=== PATIENT | female | born 1965 | race Caucasian/White ===

== ENCOUNTER → 2024-06-20 09:21 | Outpatient (BNVA) | payer MEDICAID, SELFPAY | DX: I10 Essential (primary) hypertension (principal); E03.9 Hypothyroidism, unspecified | CPT/HCPCS: 80053; 80061; 82306; 84439; 84443; 84481; 85025 ==

== ENCOUNTER 2024-06-26 13:15 | Outpatient (CLI) | payer MEDICAID, SELFPAY ==
--- NOTE | 2024-06-26 13:30 | MM_ITS ---
WS: [id number] BILATERAL SCREENING DIGITAL TOMOSYNTHESIS MAMMOGRAM WITH CAD HISTORY: screening COMPARISON: None available. Bilateral CC and MLO views with tomosynthesis and synthetic mammography submitted. Computer aided det ection analyzed. Breast composition: There are scattered areas of fibroglandular density. no suspicious masses, microc alcifications or architectural distortion. There are a few scattered lymph nodes and calcifications w ithin each breast. MM/[place] [id number] IMPRESSION: BI-RADS: 2 - Benign. FOLLOW UP: 1 Year Follow-up
== END 2024-06-26 13:16 | disposition home or self-care (01) ==
LOC: RAD 13:16
DX: Z12.31 Encounter for screening mammogram for malignant neoplasm of breast (principal); R92.323 Mammographic fibroglandular density, bilateral breasts; R92.1 Mammographic calcification found on diagnostic imaging of breast
CPT/HCPCS: 77063; 77067; 80053; 80061; 82306; 84439; 84443; 84481; 85025

== ENCOUNTER 2024-08-19 10:47 | Emergency (ER) | payer MEDICAID, SELFPAY ==
--- NOTE | 2024-08-19 10:56 | XR_ITS ---
WS: [id number] Exam: XR ankle RT min 3V* [id number] Date/Time of Exam: 08/19/2024 11:06 AM Reason For Exam: injury No acute fracture. Lateral soft tissue swelling. The ankle mortise is equidistant. XR/XR ankle RT min 3V* [id number] IMPRESSION: 1. Lateral soft tissue swelling-no fracture.
[2024-08-19 11:29] VITALS: BP 147/81; PULSE 67; RESP 18; TEMP 36.4; O2SAT 98; BMI 35.6
--- NOTE | 2024-08-19 12:01 | ED_ITS ---
HPI - Extremity Injury (Lower) General: Chief Complaint: Extremity Problem,Nontraumatic Stated Complaint: Right ankle sprain Time Seen by Provider: 08/19/24 11:56 Source: patient and family Mode of arrival: ambulatory Limitations: no limitations History of Present Illness: Patient is a 59-year-old female presents to ED today along with her daughter for evaluation of right ankle and right foot pain. Daughter feels like she may have stepped on a pecan shell/nut in her yard. She initially felt like it was her ankle that hurt but now it is more the bottom of her foot. No direct or known injury or trauma that patient herself remembers. She has not noticed any redness or warmth to the joint. She is ambulatory here without difficulty or assistance. MD complaint: ankle injury and foot injury Onset (ago): day(s) (yesterday) Injury: Right: ankle and foot Place: home Severity: mild Relieving factors: immobilization Exacerbating factors: weight bearing Associated symptoms: Reports no associated symptoms Other symptoms: none Related Data Home Medications Medication Instructions Recorded Confirmed B-complex with vitamin C 1 tab PO DAILY 06/20/24 06/20/24 cholecalciferol (vitamin D3) 10 10 mcg PO DAILY 06/20/24 06/20/24 mcg (400 unit) capsule sennosides 8.6 mg-docusate sodium 2 tab-cap PO DAILY 06/20/24 06/20/24 50 mg tablet (Stool Softener-Stimulant Laxative) Previous Rx's Medication Instructions Recorded clopidogrel 75 mg tablet 75 mg PO DAILY #30 tabs 06/20/24 empagliflozin 10 mg tablet 10 mg PO DAILY #30 tabs 06/20/24 (Jardiance) furosemide 20 mg tablet 20 mg PO DAILY #30 tabs 06/20/24 gabapentin 300 mg capsule 300 mg PO TID #90 caps 06/20/24 levothyroxine 75 mcg tablet 75 mcg PO DAILY #30 tabs 06/20/24 metoprolol tartrate 25 mg tablet 25 mg PO BID #60 tabs 06/20/24 potassium chloride 10 mEq 10 meq PO BID #60 tabs 06/20/24 tablet,extended release atorvastatin 40 mg tablet 40 mg PO DAILY #30 tabs 07/24/24 Allergies Allergy/AdvReac Type Severity Reaction Status Date / Time morphine Allergy ADR-Vomitin Verified 06/20/24 09:33 g potassium Allergy ADR-Vomitin Verified 06/20/24 09:33 g Review of Systems Const: Denies: fever(s) Card: Denies: chest pain Resp: Denies: dyspnea Musc: Reports: extremity pain (R foot) and joint pain (R ankle); Denies: joint swelling, joint redness or joint warmth Neuro: Denies: numbness in extremities, weakness in extremities, sensory changes or difficulty walking PFSH ED PFSH: Medical History Mixed hyperlipidemia CKD (chronic kidney disease) stage 3, GFR 30-59 ml/min Breast cancer screening Vitamin D deficiency Hypothyroidism Coronary artery disease [place] 2019 Kidney disease has had stone in past. Turned septic Stroke 2012 Hypertension Surgical History H/O: hysterectomy History of open heart surgery 2005. Triple bypass History of thyroidectomy 2007 Family History Mother Cancer Cervical Cancer Father Congenital heart disease Diabetes mellitus, type 2 Other History of open heart surgery Social History Smoking and tobacco/nicotine status: former use of tobacco/nicotine Alcohol intake: never Substance/Drug Use: never Adopted: No service: No Current occupational exposures/hazards: Yes Previous occupational history: Cleaning supplies Physical Exam Const: COMMON NORMALS: no acute distress, average body habitus, no limitatio ns, healthy appearing, alert and well nourished Extremity: COMMON NORMALS: full ROM and capillary refill normal GENERAL: Yes normal exam except as noted RIGHT LOWER EXTREMITY: Yes foot & digits (very mild ankle swelling; full ROM noted; no redness/warmth) Right ankle: Yes neurovascular exam (normal) and Yes foot & digits (TTP plantar/lateral foot; no edema/redness noted) Right foot and digits: Yes inspection (no plantar injuries/puncture wounds noted) and Yes neurovascular exam (normal) Neuro: COMMON NORMALS: moves all extremities, no focal motor deficits and no sensory deficits noted SENSORIUM/ORIENTATION: Yes alert Course Vital Signs: Vital signs: Vital Signs Temperature 97.6 F 08/19/24 11:29 Pulse Rate 67 08/19/24 11:29 Respiratory Rate 18 08/19/24 11:29 Blood Pressure 147/81 08/19/24 11:29 Pulse Oximetry 98 08/19/24 11:29 MDM - Extremity Injury (Lower) Medical Decision Making XR of the ankle ordered from triage is unremarkable. Suspicion for foot fracture is extremely low based on her history. Recommended conservative therapies and follow-up with primary care in 1 to 2 weeks. Lab Data Radiology Impressions Ankle X-Ray 08/19/24 10:56 IMPRESSION: 1. Lateral soft tissue swelling-no fracture. All radiology interpretation(s) finalized by discharge Discharge Plan Discharge Patient Disposition: Home Clinical Impression: Acute pain of right foot Condition: Stable Prescriptions: No Action sennosides-docusate sodium [Stool Softener-Stimulant Laxat] 8.6-50 mg tablet 2 tab-cap PO DAILY cholecalciferol (vitamin D3) 10 mcg (400 unit) capsule 10 mcg PO DAILY B-complex with vitamin C Tablet 1 tab PO DAILY clopidogrel 75 mg tablet 75 mg PO DAILY Qty: 30 2RF Jardiance 10 mg tablet 10 mg PO DAILY Qty: 30 2RF furosemide 20 mg tablet 20 mg PO DAILY Qty: 30 2RF levothyroxine 75 mcg tablet 75 mcg PO DAILY Qty: 30 2RF metoprolol tartrate 25 mg tablet 25 mg PO BID Qty: 60 2RF potassium chloride 10 mEq tablet extended release 10 meq PO BID Qty: 60 2RF gabapentin 300 mg capsule 300 mg PO TID Qty: 90 2RF atorvastatin 40 mg tablet 40 mg PO DAILY Qty: 30 0RF Discharge Orders: Discharge ED (Routine); Ordered 08/19/24 Ordered By: Mary Chau Referrals: Francheska Shahid NP [Primary Care Provider] - Activity Restrictions/Additional Instructions: As we discussed you may gently roll the bottom of the foot, apply ice and heat (alternate), may soak in Epsom salt, begin wearing a supportive shoe, BATOOL wrap, and follow-up with primary care in 1 to 2 weeks if symptoms do not begin to improve. Coding Level of Care Code ED Candle Making Supervisor for Danni Valdez
[2024-08-19 12:38] VITALS: BP 149/104; PULSE 77; O2SAT 96
[2024-08-19 12:45] VITALS: BP 149/104; PULSE 77; O2SAT 96
== END 2024-08-19 12:45 | disposition home or self-care (01) ==
PROVIDERS: Emergency Provider Physician Assistant
DX: M79.671 Pain in right foot (principal); M25.571 Pain in right ankle and joints of right foot
CPT/HCPCS: 73610; 99283

== ENCOUNTER → 2024-08-25 08:57 | Outpatient (BNVA) | payer MEDICAID, SELFPAY | PROVIDERS: Visit Provider Internal Medicine Cardiovascular Disease | DX: I25.10 Atherosclerotic heart disease of native coronary artery without angina pectoris (principal); Z87.891 Personal history of nicotine dependence; I12.9 Hypertensive chronic kidney disease with stage 1 through stage 4 chronic kidney disease, or unspecified chronic kidney disease; N18.30 Chronic kidney disease, stage 3 unspecified | CPT/HCPCS: 99213 ==

== ENCOUNTER → 2024-09-17 15:18 | Outpatient (BNVA) | payer MEDICAID, SELFPAY | PROVIDERS: Visit Provider Internal Medicine Cardiovascular Disease | DX: I25.10 Atherosclerotic heart disease of native coronary artery without angina pectoris (principal); E78.2 Mixed hyperlipidemia; I12.9 Hypertensive chronic kidney disease with stage 1 through stage 4 chronic kidney disease, or unspecified chronic kidney disease; N18.30 Chronic kidney disease, stage 3 unspecified; Z87.891 Personal history of nicotine dependence | CPT/HCPCS: 99204 ==

== ENCOUNTER 2024-11-28 09:17 | Outpatient (CLI) | payer MEDICAID, SELFPAY ==
--- NOTE | 2024-11-28 09:30 | US_ITS ---
WS: [id number] Complete ABDOMINAL ULTRASOUND HISTORY: STAGE 3 kIDNEY DISEASE COMPARISON: None available. Liver: 14.9 cm in length. Normal size liver and echogenicity. No bile duct dilatation or mass. Portal Vein: Normal hepatopetal flow with monophasic waveform. Gallbladder: Normally distended with cholelithiasis. No wall thickening or edema. CBD: 0.4 cm Pancreas: Normal size and echogenicity. Right kidney: 10.2 cm x 4.0 x 3.6 cm. Cortex:1.0 cm. Normal size and echogenicity. No hydronephrosis or mass. Left kidney: 7.6 cm x 3.8 cm x 4.1 cm. Cortex: 1.2 cm. Normal size kidney. Cortical cyst mid kidney 3.0 x 2.5 x 3.0 cm. No hydronephrosis. Spleen: 10.0 cm. Normal size and echogenicity. Aorta and IVC: Unremarkable abdominal aorta and IVC. US/US abdomen complete* [id number] Impression: 1. Normal sized kidneys. No cortical thinning. 2. Simple cyst LEFT kidney maximum diameter 3.0 cm. 3. Cholelithiasis without acute cholecystitis.
== END 2024-11-28 09:18 | disposition home or self-care (01) ==
LOC: RAD 09:24
PROVIDERS: Visit Provider Internal Medicine
DX: N18.31 Chronic kidney disease, stage 3a (principal); N28.1 Cyst of kidney, acquired; K80.20 Calculus of gallbladder without cholecystitis without obstruction
CPT/HCPCS: 76700

== ENCOUNTER → 2024-12-22 11:11 | Outpatient (BNVA) | payer MEDICAID, SELFPAY | DX: R05.9 Cough, unspecified (principal); N18.30 Chronic kidney disease, stage 3 unspecified; E03.9 Hypothyroidism, unspecified; E78.2 Mixed hyperlipidemia; I63.9 Cerebral infarction, unspecified; I25.10 Atherosclerotic heart disease of native coronary artery without angina pectoris; I10 Essential (primary) hypertension; Z23 Encounter for immunization | CPT/HCPCS: 71046; 80053; 80061; 81000; 82043; 82306; 82310; 83970; 84439; 84443; 85025 ==

== ENCOUNTER → 2025-03-24 13:54 | Outpatient (BNVA) | payer MEDICARE, MEDICAID, SELFPAY | PROVIDERS: Visit Provider Internal Medicine Cardiovascular Disease | DX: I12.9 Hypertensive chronic kidney disease with stage 1 through stage 4 chronic kidney disease, or unspecified chronic kidney disease (principal); N18.30 Chronic kidney disease, stage 3 unspecified; E78.5 Hyperlipidemia, unspecified; I25.10 Atherosclerotic heart disease of native coronary artery without angina pectoris; R60.0 Localized edema; Z79.01 Long term (current) use of anticoagulants; Z95.1 Presence of aortocoronary bypass graft | CPT/HCPCS: 99214 ==

== ENCOUNTER → 2025-03-25 14:16 | Outpatient (BNVA) | payer MEDICARE, MEDICAID, SELFPAY | PROVIDERS: Visit Provider Nurse Practitioner | DX: R39.9 Unspecified symptoms and signs involving the genitourinary system (principal) | CPT/HCPCS: 81000; 87086 ==

== ENCOUNTER → 2025-03-30 14:43 | Outpatient (BNVA) | payer MEDICARE, MEDICAID, SELFPAY | DX: I10 Essential (primary) hypertension (principal); E03.9 Hypothyroidism, unspecified | CPT/HCPCS: 80053; 84439; 84443 ==

== ENCOUNTER 2025-04-08 16:06 | Outpatient (CLI) | payer MEDICARE, MEDICAID, SELFPAY | END 2025-04-08 16:07 | disposition home or self-care (01) | LOC: LAB 16:08 | DX: N18.30 Chronic kidney disease, stage 3 unspecified (principal) | CPT/HCPCS: 80053 ==

== ENCOUNTER 2025-05-12 11:27 | Outpatient (CLI) | payer MEDICARE, MEDICAID, SELFPAY ==
[2025-05-12 12:20] LABS: Basophils % 0.4 %; Eosinophils # 0.3 10^3/uL (0.0-0.8); Eosinophils % 2.8 %; Lymphocytes # 2.2 10^3/uL (0.8-4.8); Lymphocytes % 23.4 %; Mean Corpuscular HGB Conc 31.4 g/dL (30-55); Mean Corpuscular Hemoglobin 28.3 pg (27-33); Mean Corpuscular Volume 90.3 fl (85-98); Mean Platelet Volume 10.4 fL (7.4-10.4); Monocytes # 0.5 10^3/uL (0.2-0.9); Monocytes % 5.5 %; Neutrophils # 6.22 10^3/uL (1.8-7.7); Neutrophils % 67.6 %; Nucleated Red Blood Cells % 0 %; Platelet Count 266 10^3/cmm (157-399); Red Blood Count 4.87 10^6/uL (3.85-5.65); Red Cell Distribution Width 13.4 % (12.1-15.1); White Blood Count 9.22 10^3/uL (3.29-11.43)
[2025-05-12 12:43] LABS: Albumin Level 3.9 g/dL (3.5-5.2); Blood Urea Nitrogen 14 mg/dL (8-23); Calcium 9.4 mg/dL (8.5-10.5); Carbon Dioxide 26 mmol/L (22-29); Chloride 102 mmol/L (98-107); Glomerular Filtration Rate 41.8 mL/min (90-130); Glucose 229 mg/dL (65-115); Phosphorus 2.9 mg/dL (2.5-4.5); Sodium 139 mmol/L (136-145)
[2025-05-12 12:45] LABS: Creatinine Urine, Random 21 mg/dL (28-217); Microalbumin Random Urine 1 ug/dL (0-20)
[2025-05-12 12:47] LABS: Microalbum Creatinine Ratio Ur 48 mg/dL (0-20)
[2025-05-12 12:51] LABS: Calcium 9.2 mg/dL (8.5-10.5)
[2025-05-12 12:57] LABS: Parathyroid Hormone 88.3 pg/mL (15-65)
== END 2025-05-12 11:28 | disposition home or self-care (01) ==
PROVIDERS: Visit Provider Internal Medicine
DX: N18.31 Chronic kidney disease, stage 3a (principal)
CPT/HCPCS: 36415; 80069; 82044; 82310; 83970; 85025

== ENCOUNTER → 2025-05-21 12:04 | Outpatient (BNVA) | payer MEDICARE, MEDICAID, SELFPAY | DX: R73.09 Other abnormal glucose (principal) | CPT/HCPCS: 83036 ==

== ENCOUNTER 2025-06-29 09:52 | Outpatient (CLI) | payer MEDICARE, MEDICAID, SELFPAY ==
--- NOTE | 2025-06-29 10:00 | MM_ITS ---
WS: [id number] BILATERAL SCREENING DIGITAL TOMOSYNTHESIS MAMMOGRAM WITH CAD HISTORY: screening COMPARISON: 06/26/2024 Bilateral CC and MLO views with tomosynthesis and synthetic mammography submitted. Computer aided detection analyzed. Breast composition: There are scattered areas of fibroglandular density. No suspicious masses, microcalcifications or architectural distortion. Arterial calcifications. No suspicious grouping of calcifications. MM/MM scr BI tomosynthesis [id number] IMPRESSION: BI-RADS: 2 - Benign. FOLLOW UP: 1 Year Follow-up
== END 2025-06-29 09:53 | disposition home or self-care (01) ==
LOC: RAD 09:53
DX: Z12.31 Encounter for screening mammogram for malignant neoplasm of breast (principal)
CPT/HCPCS: 77063; 77067

== ENCOUNTER → 2025-09-30 11:43 | Outpatient (BNVA) | payer MEDICARE, MEDICAID, SELFPAY | DX: E11.9 Type 2 diabetes mellitus without complications (principal); E03.9 Hypothyroidism, unspecified | CPT/HCPCS: 80053; 82043; 83036; 84443 ==

== ENCOUNTER 2025-11-06 11:53 | Outpatient (CLI) | payer MEDICARE, MEDICAID, SELFPAY ==
[2025-11-06 12:22] LABS: Hematocrit 45.7 % (36-47); Hemoglobin 14.40 g/dL (11.27-16.99); Mean Corpuscular HGB Conc 31.5 g/dL (30-55); Mean Corpuscular Hemoglobin 28.1 pg (27-33); Mean Corpuscular Volume 89.1 fl (85-98); Nucleated Red Blood Cells % 0 %; Platelet Count 290 10^3/cmm (157-399); Red Blood Count 5.13 10^6/uL (3.85-5.65); White Blood Count 10.41 10^3/uL (3.29-11.43)
[2025-11-06 12:42] LABS: Creatinine Urine, Random 51 mg/dL (28-217); Microalbum Creatinine Ratio Ur 20 mg/dL (0-20)
[2025-11-06 12:45] LABS: Albumin Level 4.4 g/dL (3.5-5.2); Anion Gap 18.0 (5-19); Blood Urea Nitrogen 11 mg/dL (8-23); Calcium 9.7 mg/dL (8.5-10.5); Carbon Dioxide 25 mmol/L (22-29); Chloride 103 mmol/L (98-107); Glucose 195 mg/dL (65-115); Potassium 4.0 mmol/L (3.5-5.1); Sodium 142 mmol/L (136-145)
[2025-11-06 12:46] LABS: Calcium 9.8 mg/dL (8.5-10.5)
== END 2025-11-06 11:54 | disposition home or self-care (01) ==
PROVIDERS: Visit Provider Registered Nurse
DX: N18.31 Chronic kidney disease, stage 3a (principal)
CPT/HCPCS: 36415; 80069; 82044; 82310; 83970; 85025